=== PATIENT | female | born 1955 | race African-American/Black ===

== ENCOUNTER 2023-04-14 11:26 | Observation (INO) | payer OTHER, SELFPAY ==
--- NOTE | ~2023-04-14 | CT_ITS ---
EXAMINATION: CT HEAD WITHOUT CONTRAST CLINICAL INFORMATION: Dizziness. COMPARISON: Brain MRI from 06/24/2019. TECHNIQUE: Contiguous axial imaging was performed from the skullbase to vertex without intravenous administration of contrast. This CT examination was performed using dose optimization techniques as appropriate, variously including the following: *Automated exposure control *Adjustment of mA and/or kV according to patient size (this includes techniques or standardized protocols for targeted exams where dose is matched to indication/reason for exam; i.e. extremities or head) *Use of iterative reconstruction technique DLP: 562 mGy-cm. FINDINGS: There is no evidence of acute intracranial hemorrhage or territorial infarction. No abnormal mass effect or midline shift is seen. Schulz to white matter differentiation is well preserved. No extra-axial fluid collections are identified. The ventricles are normal in size. Mild chronic white matter microangiopathic changes noted. The osseous structures and soft tissues are normal. The mastoid air cells and visualized portions of the paranasal sinuses are well aerated. CT/CT head/brain wo IV con IMPRESSION: No acute intracranial pathology.
[2023-04-14 11:34] VITALS: BP 140/84; PULSE 58; O2SAT 99
[2023-04-14 11:39] VITALS: BP 170/93; PULSE 55; RESP 18; TEMP 36.6; O2SAT 99
[2023-04-14 12:04] LABS: MANUAL DIFF FLAG NO
[2023-04-14 12:07] LABS: Basophils Percent Auto 0.4 % (0-2); Eosinophils Percent Auto 0.8 % (0-4); Hematocrit 37.8 % (37.0-47.0); Hemoglobin 12.4 g/dl (12.0-16.0); Imm Gran Abs Auto 0.01 X10*3/uL (0.00-0.03); Imm Gran Pct Auto 0.2 % (0.0-0.4); Lymphocytes Absolute Auto 1.2 X10*3/uL (1.2-4.9); Lymphocytes Percent Auto 25.3 % (20-40); Mean Corpuscular HGB Conc 32.8 g/dl (31.0-35.0); Mean Corpuscular Hemoglobin 28.9 pg (27.0-33.0); Mean Corpuscular Volume 88.1 fL (80.0-98.0); Mean Platelet Volume 9.4 fL (9.4-12.3); Monocytes Absolute Auto 0.3 X10*3/uL (0.1-1.2); Monocytes Percent Auto 5.3 % (2-11); Neutrophils Absolute Auto 3.2 x10*3/uL (2.0-8.3); Platelet Count 243 X10*3/uL (160-400); Red Blood Count 4.29 X10*6/uL (4.20-5.50); Red Cell Distribution Width 14.3 % (11.0-16.0); White Blood Count 4.7 X10*3/uL (4.8-10.8)
[2023-04-14 12:21] LABS: Alanine Aminotransferase 6 U/L (0-31); Albumin Level 3.8 g/dL (3.5-5.0); Alkaline Phosphatase 95 U/L (39-117); Anion Gap 13 (12-20); Aspartate Amino Transferase 8 U/L (5-31); Bilirubin Total 0.3 mg/dL (0.0-1.0); Blood Urea Nitrogen 8 mg/dL (9-16); Calcium 9.1 mg/dL (8.4-10.2); Carbon Dioxide 28 mmol/L (22-29); Chloride 107 mmol/L (96-108); Creatinine Clr Calc Pharmacy 62.3; Estimated Glomerular Filt Rate > 60; Glucose Random 90 mg/dL (60-115); Potassium 3.8 mmol/L (3.3-5.1); Sodium 144 mmol/L (135-145); Total Protein 6.9 g/dL (6.5-8.0)
[2023-04-14 12:46] LABS: Influenza A PCR NEGATIVE (Negative); Influenza B PCR NEGATIVE (Negative); Resp Syncy Virus RNA Qual PCR NEGATIVE (Negative); SARS COV2 PCR INHOUSE NEGATIVE (Negative)
--- NOTE | 2023-04-14 13:04 | ED.DIZZY ---
HPI - Dizziness General Chief Complaint: Dizziness Stated Complaint: DIZZINESS/N/V Time Seen by Provider: 04/14/23 12:30 Source: EMS Mode of arrival: EMS Limitations: no limitations History of Present Illness HPI Narrative: THIS IS A 67 YEARS OLD FEMALE PRESENTED TO THE ED WITH CHIEF COMPLAINT OF DIZZINESS SHE HAS HISTORY OF VERTIGO SHE HAD DIZZINESS IN THE PAST. THIS MORNING SHE WOKE UP WITH NAUSEA HEAD SPINNING. DENIES ANY CHEST PAIN OR SHORTNESS OF BREATH MD elicited complaint: dizziness Onset (ago): hour(s) (1) Timing: sudden onset Severity: moderate Description: sense of movement and room spinning Context: change in medication Associated symptoms: denies other symptoms Related Data Home Medications Medication Instructions Recorded Confirmed cetirizine 10 mg tablet 10 mg PO DAILY 04/14/23 04/14/23 cholecalciferol (vitamin D3) 50 50 mcg PO DAILY 04/14/23 04/14/23 mcg (2,000 unit) tablet clopidogrel 75 mg tablet 75 mg PO DAILY 04/14/23 04/14/23 esomeprazole magnesium 40 mg 40 mg PO DAILY@0630 04/14/23 04/14/23 capsule,delayed release levetiracetam 500 mg tablet 500 mg PO BID 04/14/23 04/14/23 lisinopril 40 mg tablet 40 mg PO DAILY 04/14/23 04/14/23 lovastatin 40 mg tablet 40 mg PO DAILY 04/14/23 04/14/23 magnesium oxide 400 mg (241.3 mg 400 mg PO BID 04/14/23 04/14/23 magnesium) tablet Allergies Allergy/AdvReac Type Severity Reaction Status Date / Time simvastatin [From ZOCOR] Allergy Intermediate HIVES Verified 04/14/23 11:36 Review of Systems Constitutional: Constitutional: Reports no additional constitutional complaints Eyes: Eyes: Reports no additional eye complaints Cardiovascular: Cardiovascular: Reports no additional cardiovascular complaints [facility] Past Medical History Attestation statement: The following information was validated with the patient. [facility] Narrative: cva/htn Medical History Seizure disorder HLD (hyperlipidemia) CVA, old, hemiparesis Social History Social History Patient Tobacco Use Status: Never used Tobacco Advance Directives: No Advance Directives Information Provided: No Nutrition Risks: No Nutritional Risk Physical Exam Vital Signs: Vital Signs: Last Vital Signs Temp 98.0 F 04/15/23 04:56 Pulse 59 04/15/23 04:56 Resp 12 04/15/23 04:56 BP 117/55 L 04/15/23 04:56 Pulse Ox 97 04/15/23 04:56 O2 Del Method Room Air 04/15/23 04:56 BMI result Body Mass Index 30.0 Const: General: cooperative Nutritional Appearance: well nourished Orientation/consciousness: oriented to person, oriented to place, oriented to time and patient oriented x3 Limitations: no limitations HEENT: Head: Yes normal to inspection Ears: hearing grossly normal bilaterally General nose exam: Normal external nose present Face and sinus: Yes normal facial exam Mouth: Normal oral and palatal mucosa present Teeth and gingiva: dentition normal Throat: Yes posterior oropharynx normal Neck: Neck: Yes normal visual inspection Chest: Chest palpation & inspection: normal inspection of the chest Resp: Effort & Inspection: normal respiratory effort Auscultation: clear to auscultation bilaterally Percussion: percussion normal Cardio: Jugular venous distension: no JVD Rate: regular rate Rhythm: regular rhythm GI: Inspection: Yes normal to inspection Palpation (GI): Soft to palpation Percussion: Yes normal to percussion : General: Yes no CVA tenderness Back/Spine/Pelvis: Back: no CVA tenderness Neuro: General: oriented to person, oriented to place, oriented to time and patient oriented x3 Cranial nerves: Yes CN's II-XII intact bilaterally Medications Administered Generic Name Dose Route Start Last Admin Trade Name Sreedharq PRN Reason Stop Dose Admin Enoxaparin Sodium 40 mg 04/14/23 17:45 04/14/23 18:44 Enoxaparin Sodium 40 Mg/0.4 Ml Syringe SUBCUT 40 mg Q24H PATRIC Administration Sodium Chloride 1,000 mls @ 100 mls/hr 04/14/23 16:00 04/15/23 02:31 Ns IVCONT 100 mls/hr .Q10H PATRIC Administration Levetiracetam 500 mg 04/14/23 21:00 04/14/23 20:27 Levetiracetam 500 Mg Tablet PO Not Given BID PATRIC Magnesium Oxide 400 mg 04/14/23 21:00 04/14/23 20:34 Magnesium Oxide 400 Mg Tablet PO 400 mg BID PATRIC Administration Meclizine HCl 25 mg 04/14/23 21:00 04/14/23 20:34 Meclizine Hcl 25 Mg Tablet PO 25 mg TID PATRIC Administration Sodium Chloride 3 ml 04/15/23 00:00 04/15/23 00:10 0.9 % Sodium Chloride Flush 3 Ml Syringe IVFLUSH Not Given QSHIFT PATRIC Discontinued Medications Generic Name Dose Route Start Last Admin Trade Name Arvin PRN Reason Stop Dose Admin Diphenhydramine HCl 25 mg 04/14/23 17:43 04/14/23 18:40 Diphenhydramine Hcl 50 Mg/Ml Vial IVPUSH 04/14/23 17:44 25 mg ONCE ONE Administration Levetiracetam 500 mg 04/14/23 17:39 04/14/23 18:40 Levetiracetam 500 Mg Tablet PO 04/14/23 17:40 500 mg ONCE ONE Administration Lisinopril 40 mg 04/14/23 17:39 04/14/23 18:40 Lisinopril 40 Mg Tablet PO 04/14/23 17:40 40 mg ONCE ONE Administration Protocol Meclizine HCl 25 mg 04/14/23 12:53 04/14/23 13:16 Meclizine Hcl 25 Mg Tablet PO 04/14/23 12:54 25 mg ONCE ONE Administration Metoclopramide HCl 10 mg 04/14/23 12:53 04/14/23 13:16 Metoclopramide Hcl 10 Mg/2 Ml Vial IVPUSH 04/14/23 12:54 10 mg ONCE ONE Administration Ondansetron HCl 4 mg 04/14/23 15:55 04/14/23 16:13 Ondansetron Hcl 4 Mg/2 Ml Vial IVPUSH 04/14/23 15:56 4 mg ONCE ONE Administration Medical Decision Making Medical Decision Making [facility] Narrative: PATIENT PRESENTED TO THE EMERGENCY ROOM COMPLAINING OF DIZZINESS SHE HAS PRIOR HISTORY OF DIZZINESS WILL OBTAIN CT SCAN OF THE HEAD WILL TREAT SYMPTOMATICALLY WILL REASSESS Differential Diagnosis Differential Diagnoses: The differential diagnosis associated with the presentation includes VERTIGO/BENIGN POSITION VERTIGO Admission/Observation Consideration of admission/observation: Escalation of care including admission/observation considered Lab Data 04/14/23 12:01 04/14/23 12:01 Labs: Lab Results 04/14/23 04/14/23 04/14/23 Range/Units 12:01 12:04 16:58 WBC 4.7 L (4.8-10.8) X10*3/uL RBC 4.29 (4.20-5.50) X10*6/uL Hgb 12.4 (12.0-16.0) g/dl Hct 37.8 (37.0-47.0) % MCV 88.1 (80.0-98.0) fL MCH 28.9 (27.0-33.0) pg MCHC 32.8 (31.0-35.0) g/dl RDW 14.3 (11.0-16.0) % Plt Count 243 (160-400) X10*3/uL MPV 9.4 (9.4-12.3) fL Immature Gran % (Auto) 0.2 (0.0-0.4) % Neut % (Auto) 68.0 (45-73) % Lymph % (Auto) 25.3 (20-40) % [place] % (Auto) 5.3 (2-11) % Eos % (Auto) 0.8 (0-4) % Baso % (Auto) 0.4 (0-2) % Lymph # (Auto) 1.2 (1.2-4.9) X10*3/uL [place] # (Auto) 0.3 (0.1-1.2) X10*3/uL Eos # (Auto) 0.0 (0.0-0.4) X10*3/uL Baso # (Auto) 0.0 (0.0-0.2) X10*3/uL Abs Immat Gran (auto) 0.01 (0.00-0.03) X10*3/uL Absolute Neuts (auto) 3.2 (2.0-8.3) x10*3/uL Absolute Nucleated RBC 0.000 (0.0-0.012) X10*3/uL Nucleated RBC % (auto) 0.0 (0.0-0.2) /100WBC Sodium 144 (135-145) mmol/L Potassium 3.8 (3.3-5.1) mmol/L Chloride 107 (96-108) mmol/L Carbon Dioxide 28 (22-29) mmol/L Anion Gap 13 (12-20) BUN 8 L (9-16) mg/dL Creatinine 0.88 (0.5-1.4) mg/dL Estim Creat Clear Calc 62.3 Estimated GFR > 60 Random Glucose 90 (60-115) mg/dL Calcium 9.1 (8.4-10.2) mg/dL Total Bilirubin 0.3 (0.0-1.0) mg/dL AST 8 (5-31) U/L ALT 6 (0-31) U/L Alkaline Phosphatase 95 (39-117) U/L Total Protein 6.9 (6.5-8.0) g/dL Albumin 3.8 (3.5-5.0) g/dL Urine Color Yellow Urine Appearance Clear Urine pH 7.0 (5.0-9.0) Ur Specific [place] 1.015 (1.005-1.025) Urine Protein Negative (Neg-Trace) mg/dL Urine Glucose (UA) Negative (Negative) mg/dL Urine Ketones Negative (Negative) mg/dL Urine Blood Negative (Negative) Urine Nitrite Negative (Negative) Ur Leukocyte Esterase Negative (Negative) Influenza Type A (PCR) NEGATIVE (Negative) Influenza Type B (PCR) NEGATIVE (Negative) RSV RNA Qual (PCR) NEGATIVE (Negative) SARS-CoV-2 RNA (RT-PCR) NEGATIVE (Negative) Discharge Plan Discharge Clinical Impression: Dizziness Patient Disposition: Admitted As Inpatient
[2023-04-14] MEDS: Meclizine HCl 25 MG TABLET PO ×2 (13:16→20:34)
[2023-04-14] MEDS: Metoclopramide HCl 10 MG/2 ML VIAL IVPUSH (13:16)
[2023-04-14] MEDS: ondansetron HCL 4 MG/2 ML VIAL IVPUSH (16:13)
[2023-04-14] MEDS: 0.9 % Sodium Chloride 1,000 ML 100 ML IVCONT (16:14)
[2023-04-14 17:07] LABS: Appearance Urine Clear; Color Urine Yellow; Glucose Urine UA Negative (Negative); Leukocyte Esterase Urine Negative (Negative); Nitrite Urine Negative (Negative); Specific Gravity - Urine 1.015 (1.005-1.025); Urine Blood Negative (Negative); Urine Ketones Negative (Negative); Urine Protein Negative (Neg-Trace)
--- NOTE | 2023-04-14 17:46 | PM.IMHP ---
History of Present Illness Date of Service: 04/14/23 Chief Complaint: Intractable Nausea and vomiting A 67 years old lady with PMH of Seizure, CVA w mild left weakness, HLD among others who is presenting to the hospital with intractable nausea and vomiting associated with vertigo. The patient reports waking up this morning and feeling the whole room rotating around her, she managed to get out of her bed and went to the kitchen leaning to the stewart, barely escaping falling, when she had some water she started throwing up and that happened many other times as dry heaving. denies any fever, chills, chest pain, palpitations, abdominal pain, diarrhea or urinary symptoms. In ED she did not improve with Hemlich maneuver. Admitted for monitoring and treatment. Review of Systems Review of Systems: No fever, chills or weakness No chest pain, palpitation No shortness of breath or coughing No abdominal pain, but has nausea and vomiting No urinary symptoms No any rash or wounds PMFSH Medical History Seizure disorder HLD (hyperlipidemia) CVA, old, hemiparesis Social History Advance Directives: No Advance Directives Information Provided: No Meds Allergies Allergy/AdvReac Type Severity Reaction Status Date / Time simvastatin [From ZOCOR] Allergy Intermediate HIVES Verified 04/14/23 11:36 Active Medications: Current Medications Acetaminophen (Acetaminophen 325 Mg Tablet) 650 mg PO Q6H PRN PRN Reason: Pain, Mild (Pain Scale 1-3) Enoxaparin Sodium (Enoxaparin Sodium 40 Mg/0.4 Ml Syringe) 40 mg SUBCUT Q24H PATRIC Sodium Chloride (Ns) 1,000 mls @ 100 mls/hr IVCONT .Q10H PATRIC Last Admin: 04/14/23 16:14 Dose: 100 mls/hr Levetiracetam (Levetiracetam 500 Mg Tablet) 500 mg PO BID PATRIC Lisinopril (Lisinopril 40 Mg Tablet) 40 mg PO ONCE ONE; Protocol Stop: 04/14/23 17:40 Meclizine HCl (Meclizine Hcl 25 Mg Tablet) 25 mg PO TID PATRIC Meclizine HCl (Meclizine Hcl 25 Mg Tablet) 25 mg PO Q6H PRN PRN Reason: Vertigo Ondansetron HCl (Ondansetron Hcl 4 Mg/2 Ml Vial) 4 mg IVPUSH Q8H PRN PRN Reason: Nausea and Vomiting Sodium Chloride (0.9 % Sodium Chloride Flush 3 Ml Syringe) [facility] Medications Medication Instructions Recorded Confirmed Last Taken Type cetirizine 10 mg tablet 10 mg PO DAILY 04/14/23 Unknown History cholecalciferol (vitamin D3) 50 50 mcg PO DAILY 04/14/23 Unknown History mcg (2,000 unit) tablet clopidogrel 75 mg tablet 75 mg PO DAILY 04/14/23 Unknown History esomeprazole magnesium 40 mg 40 mg PO DAILY 04/14/23 Unknown History capsule,delayed release levetiracetam 500 mg tablet 500 mg PO BID 04/14/23 Unknown History lisinopril 40 mg tablet 40 mg PO DAILY 04/14/23 Unknown History lovastatin 40 mg tablet 40 mg PO DAILY 04/14/23 Unknown History magnesium oxide 400 mg (241.3 mg 400 mg PO BID 04/14/23 Unknown History magnesium) tablet Physical Exam Vital Signs and Narrative: Vital Signs: Last Vital Signs Temp 97.8 F 04/14/23 11:39 Pulse 55 04/14/23 11:39 Resp 18 04/14/23 11:39 BP 170/93 H 04/14/23 11:39 Pulse Ox 99 04/14/23 11:39 O2 Del Method Room Air 04/14/23 11:39 BMI result Body Mass Index 30.0 Const: Other: Constitutional : Awake, interactive, not in distress Eyes: no nystagmus Neck : Normal inspection, Supple Cardiovascular : RRR, no JVP, no lower extremity edema Respiratory : good bilateral air entry, no crackles, wheezes or rhonchi Gastrointestinal: soft, lax, Normal bowel sounds, Non tender Skin : Warm, Dry Neurological : Alert & oriented x3, mild left sided weakness, no focal deficit , CN 2-12 within normal Results Labs 04/14/23 12:01 04/14/23 12:01 Labs: Laboratory Results - last 24 hr 04/14/23 04/14/23 04/14/23 12:01 12:04 16:58 MCV 88.1 MCH 28.9 MCHC 32.8 RDW 14.3 Plt Count 243 MPV 9.4 Immature Gran % (Auto) 0.2 Neut % (Auto) 68.0 Lymph % (Auto) 25.3 [place] % (Auto) 5.3 Eos % (Auto) 0.8 Baso % (Auto) 0.4 Lymph # (Auto) 1.2 [place] # (Auto) 0.3 Eos # (Auto) 0.0 Baso # (Auto) 0.0 Abs Immat Gran (auto) 0.01 Absolute Neuts (auto) 3.2 Absolute Nucleated RBC 0.000 Nucleated RBC % (auto) 0.0 Anion Gap 13 Estim Creat Clear Calc 62.3 Estimated GFR > 60 Random Glucose 90 Calcium 9.1 Total Bilirubin 0.3 AST 8 ALT 6 Alkaline Phosphatase 95 Total Protein 6.9 Albumin 3.8 Urine Color Yellow Urine Appearance Clear Urine pH 7.0 Ur Specific [place] 1.015 Urine Protein Negative Urine Glucose (UA) Negative Urine Ketones Negative Urine Blood Negative Urine Nitrite Negative Ur Leukocyte Esterase Negative Influenza Type A (PCR) NEGATIVE Influenza Type B (PCR) NEGATIVE RSV RNA Qual (PCR) NEGATIVE SARS-CoV-2 RNA (RT-PCR) NEGATIVE Imaging Radiologist's Impressions: Impressions Head CT 04/14/23 13:04 IMPRESSION: No acute intracranial pathology. Assessment and Plan (1) Dizziness: Status: Acute Plan A 67 years old lady with PMH of Seizure, CVA w mild left weakness, HLD among others who is presenting to the hospital with intractable nausea and vomiting associated with vertigo. Acute Vertigo Unclear etiology, could be related to BPPV CT head negative for any acute findings Meclizine PATRIC and PRN IV Zofran for nausea PT eval Hx CVA Continue Plavix and statin HTN Lisinopril Hx Seizure Keppra 500 DVT PPx Lovenox Quality Stroke Does the patient have a stroke diagnosis?: No VTE Prior VTE?: No VTE Risk Level:: Medical - moderate - high VTE Device Contraindication: Treatment Not Indicated VTE Drug Contraindication: N/A - Med Ordered
--- NOTE | 2023-04-14 18:33 | PHA.MEDREC ---
Pharmacy Consult ? Medication Reconciliation Pharmacy has completed the medication reconciliation.
[2023-04-14] MEDS: lisinopriL 40 MG TABLET PO (18:40)
[2023-04-14] MEDS: levETIRAcetam 500 MG TABLET PO (18:40)
[2023-04-14] MEDS: diphenhydrAMINE HCL 50 MG/ML VIAL 25 MG IVPUSH (18:40)
[2023-04-14] MEDS: Enoxaparin Sodium 40 MG/0.4 ML SYRINGE SUBCUT (18:44)
[2023-04-14 19:00] VITALS: BP 155/83; PULSE 54; RESP 16; TEMP 36.9; O2SAT 98
--- NOTE | 2023-04-14 19:02 | PC.NURSE ---
this rn assumed care of pt. pt resting in stretcher comfortably,reports dizziness at this time. vss.
--- NOTE | 2023-04-14 20:27 | PC.NURSE ---
hospitalist hold Keppra for pt at this time due to pt receiving dose around 1830 today.
[2023-04-14] MEDS: Magnesium Oxide 400 MG TABLET PO (20:34)
--- NOTE | 2023-04-14 20:36 | PC.NURSE ---
pt medicated per mar at this time.
[2023-04-14 22:18] VITALS: BP 152/60; PULSE 74; RESP 16; TEMP 36.7; O2SAT 94
--- NOTE | 2023-04-14 22:23 | PC.NURSE ---
this RN assisted pt to ambulate to the bathroom, pt ambulated with steady gait. pt reported mild dizziness when ambulating back to bed.
[2023-04-15] MEDS: 0.9 % Sodium Chloride 1,000 ML 100 ML IVCONT (02:31)
[2023-04-15 04:56] VITALS: BP 117/55; PULSE 59; RESP 12; TEMP 36.7; O2SAT 97
[2023-04-15] MEDS: Omeprazole 20 MG CAPSULE.DR PO (06:18)
[2023-04-15 07:14] VITALS: BP 146/58; PULSE 54; RESP 11; O2SAT 97
[2023-04-15] MEDS: Magnesium Oxide 400 MG TABLET PO (08:49)
[2023-04-15] MEDS: Clopidogrel Bisulfate 75 MG TABLET PO (08:49)
[2023-04-15] MEDS: Meclizine HCl 25 MG TABLET PO (08:49)
[2023-04-15] MEDS: levETIRAcetam 500 MG TABLET PO (08:50)
[2023-04-15 09:48] VITALS: BP 146/58; PULSE 54; O2SAT 97
--- NOTE | 2023-04-15 12:35 | MHC.CM.PN ---
pt dcd home no skilled servies pt will resume [facility] thru [facility]
--- NOTE | 2023-04-15 12:37 | PM.DS ---
DS: Providers Provider Date of Service: 04/15/23 Date of admission: 04/14/23 17:39 Primary care physician: Michel Bhat MD DS: Diagnosis Discharge Diagnosis (1) Seizure disorder: Status: Acute (2) Vertigo: Status: Acute DS: Summary Hospital Course Hospital Course: Admission note HPI A 67 years old lady with PMH of Seizure, CVA w mild left weakness, HLD among others who is presenting to the hospital with intractable nausea and vomiting associated with vertigo. The patient reports waking up this morning and feeling the whole room rotating around her, she managed to get out of her bed and went to the kitchen leaning to the stewart, barely escaping falling, when she had some water she started throwing up and that happened many other times as dry heaving. denies any fever, chills, chest pain, palpitations, abdominal pain, diarrhea or urinary symptoms. In ED she did not improve with Hemlich maneuver. Admitted for monitoring and treatment. Hospital course # Acute Vertigo Admitted for evaluation of vertigo of unclear etiology, could be related to BPPV but Hemlich made her more nauseos in ED. CT head negative for any acute findings. Started on IV fluids, Meclizine PATRIC and PRN and IV Zofran for nausea with good response overnight as nausea resolved and Vertigo did not reoccur again. She had PT prem who recommended home PT. Change your position slowly and with care PHysical therapy at home Meclizine three times a day for the next 3 days then as needed Zofran for nausea as needed Time Attestation Discharge coordination time: Less than 30 minutes Quality: Safe Use of Opioids Does Pt have an Active Cancer Diagnosis on the Problem List?: No Quality: Stroke Does the patient have a stroke diagnosis?: No Physical Exam Vital Signs: Vital Signs: Last Vital Signs Temp 98.0 F 04/15/23 04:56 Pulse 54 04/15/23 09:48 Resp 11 L 04/15/23 07:14 BP 146/58 H 04/15/23 09:48 Pulse Ox 97 04/15/23 09:48 O2 Del Method Room Air 04/15/23 07:14 BMI result Body Mass Index 30.0 Const: Other: Constitutional : Awake, interactive, not in distress Eyes: no nystagmus Neck : Normal inspection, Supple Cardiovascular : RRR, no JVP, no lower extremity edema Respiratory : good bilateral air entry, no crackles, wheezes or rhonchi Gastrointestinal: soft, lax, Normal bowel sounds, Non tender Skin : Warm, Dry Neurological : Alert & oriented x3, mild left sided hemiparesis DS: Data Data Completed and Pending Labs on day of discharge: Laboratory Results - last 24 hr 04/14/23 04/14/23 12:04 16:58 Urine Color Yellow Urine Appearance Clear Urine pH 7.0 Ur Specific [place] 1.015 Urine Protein Negative Urine Glucose (UA) Negative Urine Ketones Negative Urine Blood Negative Urine Nitrite Negative Ur Leukocyte Esterase Negative Influenza Type A (PCR) NEGATIVE Influenza Type B (PCR) NEGATIVE RSV RNA Qual (PCR) NEGATIVE SARS-CoV-2 RNA (RT-PCR) NEGATIVE Imaging CT scan - head: Radiologist's impression: ITS Impressions Head CT 04/14/23 13:04 IMPRESSION: No acute intracranial pathology. Discharge Plan Discharge Anticipated Discharge Date/Time: 04/15/23 12:30 Patient Disposition: Home Health Service Discharge Diagnosis: Vertigo Referrals: Michel Bhat MD [Primary Care Provider] - 1 Week Discharge Medications: New meclizine 25 mg Tablet 25 mg PO TID Qty: 30 1RF ondansetron 4 mg tablet,disintegrating 4 mg PO Q8H PRN (Reason: nausea and vomiting) Qty: 20 0RF Continued cetirizine 10 mg tablet 10 mg PO DAILY levetiracetam 500 mg tablet 500 mg PO BID lovastatin 40 mg tablet 40 mg PO DAILY clopidogrel 75 mg tablet 75 mg PO DAILY magnesium oxide 400 mg (241.3 mg magnesium) tablet 400 mg PO BID esomeprazole magnesium 40 mg capsule,delayed release(DR/EC) 40 mg PO DAILY@0630 lisinopril 40 mg tablet 40 mg PO DAILY cholecalciferol (vitamin D3) 50 mcg (2,000 unit) tablet 50 mcg PO DAILY Discharge Orders: Discharge Order (Routine); Ordered 04/15/23 Ordered By: Kristal Hess Diet: Advance to usual diet Activity on Discharge: As tolerated Stand Alone Forms: Patient Portal Discharge page Care Plan Goals: Read below Health Concerns: Read below Plan of Treatment: Read below Assessment: Change your position slowly and with care PHysical therapy at home Meclizine three times a day for the next 3 days then as needed Zofran for nausea as needed
--- NOTE | 2023-04-15 12:37 | W.MHC.F2F ---
Service Date Service Date: 04/15/23 Encounter Date of encounter: 04/15/23 Reasons for Services Signs and symptoms assessed: Vertigo Reason for physical therapy: home safety and mobility and therapeutic exercises Homebound: Leaving the home is medically contraindicated at this time without the asist of a device and/or another person due th the listed conditions above and below. Reason homebound: unsteady gait / fall risk Certification: Based on the above findings, I certify that this patient is confined to the home and needs intermittent long-term care, physical therapy and/or speech therapy, or continues to need occupational therapy. The patient is under my care, and I have initiated the establishment of the plan of care. The patient will be followed by a physician who will periodically review the plan of care. Time Spent With Patient Time: Total time managing care of this patient today ____ minutes.
[2023-04-15 13:20] VITALS: BP 148/58; PULSE 51; RESP 16; TEMP 36.6; O2SAT 98
[2023-04-15 14:44] VITALS: BP 138/78; PULSE 54; RESP 16; TEMP 36.6; O2SAT 98
--- NOTE | 2023-04-15 14:44 | PC.NURSE ---
[facility] staff- staff is working on assisting pt w liseth
--- NOTE | 2023-04-15 14:50 | PC.NURSE ---
param shuttle to meat pickler pt in front of hospital- pt wheeled out safely w family/rn. no distress. aox4. calm, coop. piv out
--- NOTE | 2023-04-15 14:56 | PC.NURSE ---
aox4. calm, no distress. breathing regularly.
== END 2023-04-15 14:50 | disposition home health service (06) ==
LOC: HO.ED 16:36 → HO.EDOVER 18:01
PROVIDERS: Admitting Provider Student in an Organized Health Care Education/Training Program; Emergency Provider Emergency Medicine; PCP Internal Medicine; Visit Provider Student in an Organized Health Care Education/Training Program
DX: R42 Dizziness and giddiness (principal); G40.909 Epilepsy, unspecified, not intractable, without status epilepticus; R11.0 Nausea; Z79.899 Other long term (current) drug therapy; E78.5 Hyperlipidemia, unspecified; I69.359 Hemiplegia and hemiparesis following cerebral infarction affecting unspecified side; I10 Essential (primary) hypertension; Z20.822 Contact with and (suspected) exposure to COVID-19; Z20.828 Contact with and (suspected) exposure to other viral communicable diseases
CPT/HCPCS: 0241U; 70450; 80053; 81003; 85025; 96361; 96372; 96374; 96375; 97162; 99221; 99285; J1200; J1650; J2405; J2765

== ENCOUNTER → 2023-04-14 17:39 | Outpatient (BNV) | payer OTHER, SELFPAY | PROVIDERS: Admitting Provider Student in an Organized Health Care Education/Training Program; Emergency Provider Emergency Medicine; Visit Provider Student in an Organized Health Care Education/Training Program | DX: G40.909 Epilepsy, unspecified, not intractable, without status epilepticus (principal); R42 Dizziness and giddiness | CPT/HCPCS: 99222; 99238; G0180 ==

== ENCOUNTER 2024-09-12 03:36 | Emergency (ER) | payer OTHER, SELFPAY ==
--- NOTE | 2024-09-12 | ECG_ITS ---
Test Reason : ABD PX Blood Pressure : */* mmHG Vent. Rate : 60 BPM Atrial Rate : 60 BPM P-R Int : 138 ms QRS Dur : 74 ms QT Int : 416 ms P-R-T Axes : 67 66 82 degrees QTcB Int : 416 ms Normal sinus rhythm with sinus arrhythmia Normal ECG When compared with ECG of 24-Jun-2019 03:22, No significant change was found Referred By: Generic ED Physician Electronically Signed By: Elia Guevara
--- NOTE | ~2024-09-12 | CT_ITS ---
CLINICAL HISTORY: Lower abdominal pain? Colitis diverticulitis CT abdomen and pelvis without contrast Comparison: None Findings: No consolidation or effusion. Unremarkable gallbladder and solid organs. There are no abnormal findings in the gallbladder fossa. There is extrahepatic biliary tract dilatation without readily apparent etiology. Correlate clinically for possible physiologic etiology. No urolithiasis. No bowel obstruction, pneumoperitoneum, or pneumatosis. There are diverticuli throughout the colon without imaging evidence of diverticulitis. Pelvic contents unremarkable. Normal appendix. No acute fracture. IMPRESSION: Possible physiologic extrahepatic biliary tract dilatation. Correlate with clinical and laboratory findings. This document has been electronically signed by: Evin Tai MD on 09/12/2024 05:58:02
[2024-09-12 03:43] VITALS: BP 160/92; PULSE 83; O2SAT 95
[2024-09-12 03:48] VITALS: BP 151/83; PULSE 58; RESP 18; TEMP 36.7; O2SAT 97; BMI 29.8
[2024-09-12 04:06] LABS: MANUAL DIFF FLAG NO
[2024-09-12 04:08] LABS: Basophils Percent Auto 0.2 % (0-2); Eosinophils Percent Auto 0.4 % (0-4); Hematocrit 38.7 % (37.0-47.0); Hemoglobin 12.9 g/dl (12.0-16.0); Imm Gran Abs Auto 0.02 X10*3/uL (0.00-0.03); Imm Gran Pct Auto 0.4 % (0.0-0.4); Lymphocytes Absolute Auto 1.2 X10*3/uL (1.2-4.9); Lymphocytes Percent Auto 23.4 % (20-40); Mean Corpuscular HGB Conc 33.3 g/dl (31.0-35.0); Mean Corpuscular Hemoglobin 27.8 pg (27.0-33.0); Mean Corpuscular Volume 83.4 fL (80.0-98.0); Mean Platelet Volume 9.2 fL (9.4-12.3); Monocytes Absolute Auto 0.3 X10*3/uL (0.1-1.2); Neutrophils Absolute Auto 3.7 x10*3/uL (2.0-8.3); Neutrophils Percent Auto 70.6 % (45-73); Platelet Count 257 X10*3/uL (160-400); Red Blood Count 4.64 X10*6/uL (4.20-5.50); Red Cell Distribution Width 14.3 % (11.0-16.0); White Blood Count 5.2 X10*3/uL (4.8-10.8)
[2024-09-12 04:16] VITALS: BP 151/81; PULSE 63; RESP 16; TEMP 36.2; O2SAT 96
[2024-09-12 04:35] LABS: Alanine Aminotransferase 12 U/L (0-31); Albumin Level 4.1 g/dL (3.5-5.0); Alkaline Phosphatase 102 U/L (39-117); Anion Gap 15 (12-20); Aspartate Amino Transferase 14 U/L (5-31); Bilirubin Total 0.3 mg/dL (0.0-1.0); Blood Urea Nitrogen 18 mg/dL (9-16); Calcium 9.1 mg/dL (8.4-10.2); Carbon Dioxide 26 mmol/L (22-29); Chloride 105 mmol/L (96-108); Creatinine Clr Calc Pharmacy 58.2; Estimated Glomerular Filt Rate 58; Glucose Random 100 mg/dL (60-115); Potassium 3.9 mmol/L (3.3-5.1); Sodium 142 mmol/L (135-145); Total Protein 7.2 g/dL (6.5-8.0); Troponin-I High Sensitivity < 2.7 ng/L (<3.5-17.0)
--- NOTE | 2024-09-12 04:57 | ED_ITS ---
HPI - Abdominal Pain General Chief Complaint: Abdominal Pain Stated Complaint: Ab pain v/d Time Seen by Provider: 09/12/24 04:39 Source: patient Mode of arrival: ambulatory Limitations: no limitations History of Present Illness ED Provider: HPI narrative: Patient apparently had food last night at [employer] woke up at 02:30 with upper abdominal pain with nausea vomiting vomited 3 times had chills also had 1 loose bowels patient does have history of diverticulitis at this time patient complaining of significant pain in the upper abdomen no other family member sick Related Data Home Medications ?Medication ?Instructions ?Recorded ?Confirmed cetirizine 10 mg tablet 10 mg PO DAILY 04/14/23 04/14/23 cholecalciferol (vitamin D3) 50 50 mcg PO DAILY 04/14/23 04/14/23 mcg (2,000 unit) tablet clopidogrel 75 mg tablet 75 mg PO DAILY 04/14/23 04/14/23 esomeprazole magnesium 40 mg 40 mg PO DAILY@0630 04/14/23 04/14/23 capsule,delayed release levetiracetam 500 mg tablet 500 mg PO BID 04/14/23 04/14/23 lisinopril 40 mg tablet 40 mg PO DAILY 04/14/23 04/14/23 lovastatin 40 mg tablet 40 mg PO DAILY 04/14/23 04/14/23 magnesium oxide 400 mg (241.3 mg 400 mg PO BID 04/14/23 04/14/23 magnesium) tablet Previous Rx's ?Medication ?Instructions ?Recorded meclizine 25 mg tablet 25 mg PO TID #30 tabs 04/15/23 ondansetron 4 mg disintegrating 4 mg PO Q8H PRN nausea and 04/15/23 tablet vomiting #20 tabs ondansetron 4 mg disintegrating 4 mg PO Q6-8H PRN nausea and 09/12/24 tablet vomiting #7 tabs Allergies Allergy/AdvReac Type Severity Reaction Status Date / Time simvastatin [From ZOCOR] Allergy Intermediate HIVES Verified 09/12/24 03:50 Review of Systems Review of Systems Yes all other systems are reviewed and are negative PMFSH Past Medical History Medical History Seizure disorder HLD (hyperlipidemia) CVA, old, hemiparesis Social History Social History Patient Tobacco Use Status: Never used Tobacco Smoked in Last 30 Days: No Use of substances other than those prescribed or required for medical reasons: No Advance Directives: No Advance Directives Information Provided: Yes service: No Physical Exam ED Vital Signs: Vital Signs - 24 hr 09/12/24 03:48 09/12/24 04:16 09/12/24 06:41 Temperature 98.0 F 97.2 F 98 F Pulse Rate 58 63 66 Respiratory Rate 18 16 16 Blood Pressure 151/83 H 151/81 H 160/64 H Pulse Oximetry 97 96 98 Oxygen Delivery Method Room Air Room Air Room Air BMI result Body Mass Index 29.8 Appearance: Alert. Oriented X3. No acute distress. Eyes: No pallor or icterus ENT: Pharynx normal. Oral Mucosa moist Neck: Normal inspection. Neck supple. CVS: Normal heart rate and rhythm. Pulses normal. Respiratory: No respiratory distress. Equal air entry bilateral, no wheezing/rales/rhonchi Abdomen: Soft and diffuse tenderness mid abdomen no rebound tenderness or guarding Bowel sounds are present, no mass palpable, no CVA tenderness Skin: Skin warm and dry. Normal skin color. Normal skin turgor. Extremities: No lower extremity edema. No calf tenderness Neuro: Oriented X 3. No motor deficit. No sensory deficit.No cerebellar signs , cranial nerves II-XII intact Medical Decision Making Medical Decision Making [facility] Narrative: Patient with abdominal pain with nausea vomiting diarrhea after eating food outside status post cholecystectomy CT scan negative for acute labs are stable patient is feeling much better taking p.o. fluids discharge patient home advised to follow with PCP as needed Differential Diagnosis Differential Diagnoses: The differential diagnosis associated with the presentation includes Diverticulitis/gastritis/food poisoning/Clostridium perfringens infection Lab Data [facility] Lab Attestation statement: I reviewed the patient's lab results. 09/12/24 04:01 09/12/24 04:01 Labs: Lab Results 09/12/24 Range/Units 04:01 WBC 5.2 (4.8-10.8) X10*3/uL RBC 4.64 (4.20-5.50) X10*6/uL Hgb 12.9 (12.0-16.0) g/dl Hct 38.7 (37.0-47.0) % MCV 83.4 (80.0-98.0) fL MCH 27.8 (27.0-33.0) pg MCHC 33.3 (31.0-35.0) g/dl RDW 14.3 (11.0-16.0) % Plt Count 257 (160-400) X10*3/uL MPV 9.2 L (9.4-12.3) fL Immature Gran % (Auto) 0.4 (0.0-0.4) % Neut % (Auto) 70.6 (45-73) % Lymph % (Auto) 23.4 (20-40) % Stan[place] % (Auto) 5.0 (2-11) % Eos % (Auto) 0.4 (0-4) % Baso % (Auto) 0.2 (0-2) % Lymph # (Auto) 1.2 (1.2-4.9) X10*3/uL Stan[place] # (Auto) 0.3 (0.1-1.2) X10*3/uL Eos # (Auto) 0.0 (0.0-0.4) X10*3/uL Baso # (Auto) 0.0 (0.0-0.2) X10*3/uL Abs Immat Gran (auto) 0.02 (0.00-0.03) X10*3/uL Absolute Neuts (auto) 3.7 (2.0-8.3) x10*3/uL Absolute Nucleated RBC 0.000 (0.0-0.012) X10*3/uL Nucleated RBC % (auto) 0.0 (0.0-0.2) /100WBC Sodium 142 (135-145) mmol/L Potassium 3.9 (3.3-5.1) mmol/L Chloride 105 (96-108) mmol/L Carbon Dioxide 26 (22-29) mmol/L Anion Gap 15 (12-20) BUN 18 H (9-16) mg/dL Creatinine 0.96 (0.5-1.4) mg/dL Estim Creat Clear Calc 58.2 Estimated GFR 58 Random Glucose 100 (60-115) mg/dL Calcium 9.1 (8.4-10.2) mg/dL Total Bilirubin 0.3 (0.0-1.0) mg/dL AST 14 (5-31) U/L ALT 12 (0-31) U/L Alkaline Phosphatase 102 (39-117) U/L Troponin I High Sens < 2.7 (<3.5-17.0) ng/L Total Protein 7.2 (6.5-8.0) g/dL Albumin 4.1 (3.5-5.0) g/dL Radiology Impression Discussion of test interpretation with radiology: I have reviewed the radiologist's reading. Radiologist Impression: [place] [id number] CT Scan Report Signed Patient: Clarissa Hernandez MR#: [id number] : 1955 Acct:[id number] Age/Sex: 68 / F ADM Date: 09/12/24 Loc: HO.ED Attending Dr: Ordering Physician: Dario Lee MD Date of Service: 09/12/24 Procedure(s): CT abdomen pelvis wo IV con Accession Number(s): [id number] cc: Dario Lee MD~ Report Number: [id number]: Total DLP = 567.00 mGy-cm CLINICAL HISTORY: Lower abdominal pain? Colitis diverticulitis CT abdomen and pelvis without contrast Comparison: None Findings: No consolidation or effusion. Unremarkable gallbladder and solid organs. There are no abnormal findings in the gallbladder fossa. There is extrahepatic biliary tract dilatation without readily apparent etiology. Correlate clinically for possible physiologic etiology. No urolithiasis. No bowel obstruction, pneumoperitoneum, or pneumatosis. There are diverticuli throughout the colon without imaging evidence of diverticulitis. Pelvic contents unremarkable. Normal appendix. No acute fracture. IMPRESSION: Possible physiologic extrahepatic biliary tract dilatation. Correlate with clinical and laboratory findings. This document has been electronically signed by: Evin Tai MD on 09/12/2024 05:58:02 Medications Administered Discontinued Medications Generic Name Dose Route Start Last Admin Trade Name Freq PRN Reason Stop Dose Admin Sodium Chloride 1,000 mls @ 999 mls/hr 09/12/24 05:13 09/12/24 06:44 Ns IV 09/12/24 06:13 Infused .Q1H1M ONE Infusion Morphine Sulfate 4 mg 09/12/24 05:13 09/12/24 05:40 Morphine Sulfate 4 Mg/Ml Cartridge IVPUSH 09/12/24 05:14 Not Given ONCE ONE Protocol Ondansetron HCl 4 mg 09/12/24 05:13 09/12/24 05:40 Ondansetron Hcl 4 Mg/2 Ml Vial IVPUSH 09/12/24 05:14 4 mg ONCE ONE Administration Discharge Plan Discharge Clinical Impression: Gastroenteritis Patient Disposition: Home, Self-Care Instructions: Gastroenteritis (ED) Additional Instructions: Drink plenty of fluids Medicine for nausea as prescribed Follow with the PCP as needed if not better Prescriptions: New ondansetron 4 mg tablet,disintegrating 4 mg PO Q6-8H PRN (Reason: nausea and vomiting) Qty: 7 0RF No Action cetirizine 10 mg tablet 10 mg PO DAILY levetiracetam 500 mg tablet 500 mg PO BID lovastatin 40 mg tablet 40 mg PO DAILY clopidogrel 75 mg tablet 75 mg PO DAILY magnesium oxide 400 mg (241.3 mg magnesium) tablet 400 mg PO BID esomeprazole magnesium 40 mg capsule,delayed release(DR/EC) 40 mg PO DAILY@0630 lisinopril 40 mg tablet 40 mg PO DAILY cholecalciferol (vitamin D3) 50 mcg (2,000 unit) tablet 50 mcg PO DAILY meclizine 25 mg Tablet 25 mg PO TID Qty: 30 1RF ondansetron 4 mg tablet,disintegrating 4 mg PO Q8H PRN (Reason: nausea and vomiting) Qty: 20 0RF Print Language: Vincentian
[2024-09-12] MEDS: 0.9 % Sodium Chloride 1,000 ML 999 ML IV (05:40)
[2024-09-12] MEDS: ondansetron HCL 4 MG/2 ML VIAL IVPUSH (05:40)
[2024-09-12 06:41] VITALS: BP 160/64; PULSE 66; RESP 16; TEMP 36.6; O2SAT 98
[2024-09-12 07:28] LABS: Appearance Urine Clear; Color Urine Yellow; Glucose Urine UA Negative (Negative); Leukocyte Esterase Urine Negative (Negative); Nitrite Urine Negative (Negative); Urine Blood Negative (Negative); Urine Ketones Negative (Negative); Urine Protein Negative (Neg-Trace)
[2024-09-12 08:23] VITALS: BP 159/60; PULSE 68; RESP 18; TEMP 36.8; O2SAT 98
--- NOTE | 2024-09-12 08:23 | PC.NURSE ---
Pt able to tolerate PO intake. DC in place, this RN dc pt for primary RN
[2024-09-12 08:24] VITALS: BP 159/60; PULSE 68; RESP 18; TEMP 36.8; O2SAT 98
== END 2024-09-12 08:25 | disposition home or self-care (01) ==
PROVIDERS: Emergency Provider Internal Medicine; PCP Physician Assistant
DX: K52.9 Noninfective gastroenteritis and colitis, unspecified (principal); R10.10 Upper abdominal pain, unspecified; E78.5 Hyperlipidemia, unspecified; Z86.73 Personal history of transient ischemic attack (TIA), and cerebral infarction without residual deficits
CPT/HCPCS: 36415; 74176; 80053; 81003; 84484; 85025; 93005; 96361; 96374; 99284; 99285; J2405

== ENCOUNTER → 2024-09-12 04:02 | Outpatient (BNV) | payer OTHER, SELFPAY | PROVIDERS: Emergency Provider Internal Medicine; PCP Physician Assistant; Visit Provider Internal Medicine Cardiovascular Disease | DX: R10.9 Unspecified abdominal pain (principal) | CPT/HCPCS: 93010 ==

== ENCOUNTER → 2024-09-12 05:13 | Outpatient (BNV) | payer OTHER, SELFPAY | PROVIDERS: Emergency Provider Internal Medicine; Visit Provider Specialist | DX: R10.30 Lower abdominal pain, unspecified (principal) | CPT/HCPCS: 74176 ==